=== PATIENT | female | born 1990 | race Caucasian/White ===

== ENCOUNTER → 2020-09-11 14:24 | Outpatient (CLI) | payer OTHER | END | disposition home or self-care (01) | LOC: LAB 14:24 | PROVIDERS: ATTEND Obstetrics & Gynecology | DX: N76.0 Acute vaginitis (principal) ==

== ENCOUNTER 2021-03-17 23:12 | Emergency (ER) | payer OTHER ==
[~2021-03-17] VITALS: Ht 154.9 cm; Wt 56.7 kg
[2021-03-18] MEDS ORDERED: KETO10TA2 PO (03:54)
== END 2021-03-18 04:01 | disposition home or self-care (01) ==
LOC: ER 23:12
DX: R10.2 Pelvic and perineal pain (principal); Z33.1 Pregnant state, incidental

== ENCOUNTER 2025-02-13 08:43 | Outpatient (CLI) | payer OTHER ==
[~2025-02-13 08:43] MED LIST: KETO10TA2 PO
== END 2025-02-13 08:53 | disposition home or self-care (01) ==
LOC: SONOGRAMA 08:43
PROVIDERS: ATTEND Obstetrics & Gynecology
DX: N83.291 Other ovarian cyst, right side (principal); N83.292 Other ovarian cyst, left side

== ENCOUNTER 2025-07-13 11:56 | Emergency (ER) | payer OTHER ==
[~2025-07-13] VITALS: Ht 154.9 cm; Wt 59.0 kg
[2025-07-13] MEDS ORDERED: LODINE300 MG (12:31)
[2025-07-13] MEDS ORDERED: ORPHENADRINE CITRATE 30 MG/ML AMPUL IM ONE (12:45)
[2025-07-13] MEDS ORDERED: ORPHENADRINE CITRATE 30 MG/ML AMPUL ONE (12:45)
[2025-07-13] MEDS ORDERED: KETOROLAC TROMETHAMINE 60 MG VIAL IM ONE ×2 (12:45→12:46)
[2025-07-13] MEDS ORDERED: DEXAMETHASONE SODIUM PHOSPHATE 4 MG/ML VIAL IM ONE (12:45)
[2025-07-13] MEDS ORDERED: DEXAMETHASONE SODIUM PHOSPHATE 4 MG/ML VIAL ONE (12:46)
== END 2025-07-13 13:00 | disposition home or self-care (01) ==
LOC: ER 12:01
DX: G43.909 Migraine, unspecified, not intractable, without status migrainosus (principal); Z88.0 Allergy status to penicillin